=== PATIENT | male | born 1955 | race Caucasian/White ===

== ENCOUNTER 2016-12-18 17:17 | Emergency (ER) | payer OTHER ==
[~2016-12-18] VITALS: Ht 152.4 cm; Wt 97.7 kg
[~2016-12-18 17:17] MED LIST: ATARAX,VISTARIL25 MG PO; CEFTIN500 MG PO; CELEXA40 MG PO; KEFLEX500 MG PO; KENALOG,ARISTOC80 G1 TP; NEURONTIN600 MG PO; NORCO 5/3251 TABLET PO; PREDNISONE20 MG PO; PROPRANOLOL HCL60 MG PO; Zithromax PO; celeXA PO
[2016-12-18] MEDS ORDERED: NORCO 7.5/321 TABLET PO (19:38)
[2016-12-18] MEDS ORDERED: CIPRO500 MG PO (19:38)
[2016-12-18] MEDS ORDERED: MOTRIN800 MG PO (19:38)
[2016-12-18 20:15] VITALS: BP 143/83
== END 2016-12-18 20:15 | disposition home or self-care (01) ==
LOC: EME 17:17
PROC: 3E0234Z Introduction of Serum, Toxoid and Vaccine into Muscle, Percutaneous Approach (ICD-10-PCS; principal; 2016-12-18)
DX: S91.332A Puncture wound without foreign body, left foot, initial encounter (principal); Z23 Encounter for immunization; W22.8XXA Striking against or struck by other objects, initial encounter; Y93.01 Activity, walking, marching and hiking; Y92.007 Garden or yard of unspecified non-institutional (private) residence as the place of occurrence of the external cause
CPT/HCPCS: 73630; 99281; 99285